=== PATIENT | male | born 1980 | race Caucasian/White ===

== ENCOUNTER 2017-03-27 06:08 | Day surgery (SDC) | payer OTHER ==
[2017-03-27] MEDS ORDERED: LACTATED RINGERS 1,000 ML IV ONE ×2 (06:33→09:45)
[2017-03-27] MEDS ORDERED: ceFAZolin 2 GM/50 ML 2 GM/50 ML BAG IV ONE (06:33)
[2017-03-27] MEDS ORDERED: PROPOFOL 200 MG/20 ML VIAL IVP ONE (08:20)
[2017-03-27] MEDS ORDERED: LIDOCAINE-MPF 2% 5 ML VIAL IM ONE (08:20)
[2017-03-27] MEDS ORDERED: ONDANSETRON 4 MG/2 ML VIAL IVP ONE (08:20)
[2017-03-27] MEDS ORDERED: fentaNYL 100 MCG/2 ML VIAL IVP ONE (08:20)
[2017-03-27] MEDS ORDERED: BUPIVACAINE 0.5% PF 30 ML VIAL INFIL ONE ×2 (08:25)
--- NOTE | 2017-03-27 09:23 | OPERATIVE REPORT ---
Operative Report - General Procedure Date: 03/27/17 Planned Procedure: LEFT simple mastectomy Pre-Op Diagnosis: LEFT gynecomastia Procedure Performed: LEFT simple mastectomy Post Op Diagnosis: LEFT gynecomastia - Procedure Note Primary Surgeon: Chidi Mcqueen MD Anesthesia Provider: Chidi Marshall MD Anesthesia Technique: General ET tube, Local (30 mL 1/2% marcaine) Pathology: 2 specimens sent First: mastectomy specimen oriented with a short stitch superiorly. long stitch laterally, and double stitch deep Second: retroareolar tissue IV Fluids (mL): 400 Estimated Blood Loss (mL): 5 Complications: None. - Other Other Information/Narrative: OPERATIVE DESCRIPTION/REPORT: After verbal and written informed consent was obtained detailing the risks of infection, bleeding requiring transfusion with its risks, nerve injury, and , and after I met with the patient confirming the surgery and the site of the surgery and after initialing the site of the surgery with a surgical marker , the patient was brought to the operative suite and placed supine on the operating table. Great care was taken to avoid pressure points to prevent pressure necrosis or nerve injury. Monitoring devices were applied along with TEDs and pneumatic compressive stockings (to prevent DVT). The patient received preoperative antibiotics for surgical prophylaxis. Dr. Chidi Marshall sedated and anethetized the patient for the entire procedure. The patient was prepped and draped in the usual sterile manner. With the patient draped my initials were clearly visible. A "time in" then confirmed that the patient was identified with 3 identifiers (name, date and medical record number), the history and physical was in the chart, the signed consent confirming the procedure was in the chart, the patient was in the correct position, the aforementioned prophylactic measures were in place or given, we had the correct personnel and equipment to complete the procedure and that anesthesia, surgery and nursing were given an opportunuty to express any concerns. With the agreement of everyone in the room, we proceeded with the operation. Great care was taken to ensure that the arm was placed in a relaxed manner away from the body to facilitate exposure and to avoid nerve injury. An 3 cm incision was made from medial to the areolar skin border, then traced around in the inferior areolar skin border and then extended 3 cm laterally. The skin incision was carried down to the subcutaneous fat, but no further. Using traction and counter traction, the upper flap was dissected from the chest wall, medially to the sternal border, superiorly almost to the clavicle, laterally to the anterior border of the latissimus dorsi muscle, and superolaterally almost to the insertion of the pectoralis major muscle. The lower flap was dissected in a similar manner down to the insertion of the pectoralis fascia overlying the fifth rib medially and laterally out to the latissimus dorsi. Bovie electrocautery was used for the dissection and hemostasis. The breast was dissected from the pectoralis muscle beginning medially and progressing laterally, removing the pectoralis fascia entirely. Once the lateral border of the pectoralis major muscle was identified, the dissection was complete and the specimen removed. Upon completion of the dissection, examination of the retroareolar tissue revealed slightly thicker tissue so I removed this with Bovie electrocautery and sent is separately. Copious water lavage was used to remove any debris, and meticulous hemostasis was obtained with Bovie electrocautery. The subcutaneous tissue was approximated using interrupted simple 2-0 Vicryl. The skin incision was approximated with 4-0 Monocryl in a running subcuticular manner. A dressing was applied. At this point a time out was performed that confirmed that all the counts were correct, the procedure that was performed, the blood loss, the urine output, the IV fluids administered, and the patients condition. Having tolerated the procedure well, the patient was subsequently extubated and taken to recovery room in good and stable condition. I then spoke with the patient's and described the surgery, her 's condition and re-reviewed the expected postoperative course.
[2017-03-27] MEDS ORDERED: KETOROLAC 15 MG/ML VIAL ONE (09:29)
[2017-03-27] MEDS ORDERED: MEPERIDINE 50 MG/ML SYRINGE ONE (09:30)
[2017-03-27] MEDS ORDERED: HYDROcod/ACETAM 5/325 MG TABLET ONE (10:22)
[2017-03-27 10:31] VITALS: BP 115/76
== END 2017-03-27 06:09 | disposition home or self-care (01) ==
LOC: SDS 06:08
PROVIDERS: ATTEND Surgery
PROC: 0HBU0ZZ Excision of Left Breast, Open Approach (ICD-10-PCS; principal; 2017-03-27 07:30)
DX: N62 Hypertrophy of breast (principal)
CPT/HCPCS: 19300; A9270; J0690; J7120

== ENCOUNTER 2018-10-15 11:39 | Emergency (ER) | payer OTHER ==
[2018-10-15 11:43] VITALS: BP 139/85
--- NOTE | 2018-10-15 11:49 | ED Physician Documentation ---
History of Present Illness - Stated complaint Stated Complaint: BACK PX - Chief complaint Chief Complaint: Back Pain - Additonal information Additional information: Patient is a previously healthy 38-year-old male presenting with bilateral back pain without particular inciting incident, fall, or trauma. Patient reports that about a week ago he was doing some heavy lifting and several days later had muscular pain throughout his bilateral lumbar and thoracic area. Patient denies bony or midline pain. Patient also denies abdominal issues including pain, vomiting, urinary changes, or stool changes. Patient denies any rash, skin changes, fever. No changes in sensation or strength to his legs.Patient reports that he has been taking naproxen with relief. Patient also reports that symptoms have nearly resolved except for when he wakes in the morning or gets up from sitting. Movement improved symptoms. No other improving or worsening factors noted. Review of Systems Constitutional: denies: Fever GI: denies: Abdominal Pain, Nausea, Vomiting : denies: Dysuria Musculoskeletal: reports: Back pain PD PAST MEDICAL HISTORY - Past Medical History Cardiovascular: None Respiratory: None Endocrine/Autoimmune: None GI: None : None HEENT: None Psych: None Musculoskeletal: None Derm: None - Past Surgical History Past Surgical History: No HEENT: Other - Present Medications Home Medications: Ambulatory Orders Medication Instructions Recorded Confirmed Fluticasone [Flonase] 2 sprays AMY DAILY 03/26/17 03/26/17 Loratadine [Claritin] 10 mg PO DAILY 03/26/17 03/26/17 - Allergies Allergies/Adverse Reactions: Allergies Allergy/AdvReac Type Severity Reaction Status Date / Time No Known Drug Allergies Allergy Verified 10/15/18 11:43 PD ED PE NORMAL - Vitals Vital signs reviewed: Yes - General General: Alert and oriented X 3, No acute distress, Well developed/nourished - HEENT HEENT: Atraumatic, Moist mucous membranes - Neck Neck: No bony TTP - Respiratory Respiratory: No respiratory distress - Abdomen Abdomen: Soft, Non tender, Non distended - Back Back: No spinal TTP, Other (No significant paraspinal muscle spasm or tenderness with palpation found) - Derm Derm: Normal color, Warm and dry, No rash - Extremities Extremities: No deformity, No tenderness to palpate - Neuro Neuro: Alert and oriented X 3, No motor deficit, No sensory deficit - Psych Psych: Normal mood, Normal affect Results - Vitals Vitals: Vital Signs - 24 hr 10/15/18 11:42 Temperature 36.7 C Heart Rate 77 Respiratory 18 Rate Blood Pressure 139/85 H O2 Saturation 99 Oxygen O2 Source Room air PD MEDICAL DECISION MAKING - ED course Complexity details: considered differential, d/w patient ED course: Feel the patient is most likely experiencing musculoskeletal strain likely due to heavy lifting recently and continue daily activities including PT. Patient reports improvement with movement and anti-inflammatories. Feel that he is becoming stiff when sitting or sleeping and that is why his pain is exacerbated only at those times. Do not find evidence to indicate rash such as shingles, cellulitis, abscess, or other concerns. Do not have high suspicion for v ertebral injury given lack of traumatic mechanism. Also low suspicion for spinal cord issues such as cauda equina or epidural abscess, particularly given no neurological findings. Discussed continued use of supportive cares at home, return precautions, and appropriate follow-up. Patient voiced understanding and is comfortable with discharge plan. Patient declined work note. Departure - Departure Disposition: 01 Home, Self Care Clinical Impression: Musculoskeletal pain Condition: Good Instructions: ED Muscle Aching, ED Exercises Lumbar Muscles, ED Spasm Back No Trauma Follow-Up: your,doctor [Other] - Within 3 Days Comments: May use anti-inflammatory such as ibuprofen, Tylenol, naproxen as needed. Also recommend stretching, massage, and heat application. Is follow-up with primary care physician in next 2 to 3 days. Return to ED sooner if experience worsening symptoms or have other concerns.
== END 2018-10-15 12:49 | disposition home or self-care (01) ==
LOC: ED 11:39
DX: M54.5 Low back pain (principal); M54.6 Pain in thoracic spine; X50.0XXA Overexertion from strenuous movement or load, initial encounter
CPT/HCPCS: 99282

== ENCOUNTER 2023-07-02 06:52 | Outpatient (CLI) | payer OTHER ==
--- NOTE | 2023-07-02 13:19 | Ultrasound Report ---
PROCEDURE: Testicle w/Doppler INDICATIONS: Patient reports left scrotal mass for the past 2 weeks, which reports a decrease in siz e. No scrotal pain TECHNIQUE: Real-time scanning was performed of the scrotum and testicles, with image documentation. Color and p ulse Doppler interrogation was performed of both testicles. COMPARISON: None. FINDINGS: Right: Testicle is normal in size at 4.5 x 2.3 x 2.8 cm, and homogenous in echotexture. Epididymis is normal in overall size and morphology. No hydrocele. Varicocele is present. Overlying scrotal sk in is normal in thickness. Left: Testicle is normal in size at 4.2 x 2.0 x 2.6 cm, and homogeneous in echotexture. Epididymis is normal in overall size and morphology. Small hydrocele. Varicocele is present. Overlying scrotal skin is normal in thickness. Doppler: Color and pulse Doppler demonstrate normal and symmetric arterial flow in both testicles. IMPRESSION: Bilateral varicoceles and small left hydrocele. No testicular mass identified. No sonographic evidence of testicular torsion. Reviewed by: Karmen Roper MD on 07/02/2023 1:18 PM PST Approved by: Karmen Roper MD on 07/02/2023 1:18 PM PST Station ID: [id number]
== END 2023-07-02 06:53 | disposition home or self-care (01) ==
LOC: DI 06:52
DX: I86.1 Scrotal varices (principal); N43.3 Hydrocele, unspecified
CPT/HCPCS: 93975